=== PATIENT | male | born 1985 | race Caucasian/White ===

== ENCOUNTER 2021-09-20 01:27 | Emergency (ER) | payer SELFPAY ==
--- NOTE | ~2021-09-20 | XR_ITS ---
EXAMINATION: XR HAND, RIGHT CLINICAL INFORMATION: Laceration from glass COMPARISON: None TECHNIQUE: PA, lateral, and oblique views of the right hand. FINDINGS: Osseous alignment is anatomic. No acute fracture is seen. Soft tissue swelling is seen adjacent to the fifth MCP joint. No definite radiopaque foreign body, though assessment is somewhat limited by overlying dressing material. XR/XR hand RT min 3V IMPRESSION: Soft tissue swelling at the fifth MCP joint. No appreciable radiopaque foreign body.
[2021-09-20 01:30] VITALS: BP 126/84; PULSE 121; RESP 18; TEMP 36.4; O2SAT 95; BMI 25.8
--- NOTE | 2021-09-20 01:39 | ED_ITS ---
HPI - Wound/Laceration General Chief Complaint: Wound/Laceration Stated Complaint: Hand inj Time Seen by Provider: 09/20/21 03:29 Source: patient Mode of arrival: ambulatory Limitations: no limitations History of Present Illness HPI narrative: 36-year-old male presents with laceration to his right hand. Patient ac cidentally hit a glass door, the glass shattered and cut the 5th finger. It is unknown when his last Tdap vaccine was updated. He does have full range of motion to the digit but every time he moves the finger blood squirts out of it. He applied a pressure dressing and presented to the emergency department. He does not report any dizziness, palpitations, shortness of breath, loss of sensation, or decreased range of motion. Onset (ago): hour(s) (Within the hour of arrival) Extremity Location: right: hand Place: home Patient tetanus UTD: No Context: accidental Associated symptoms: pain and other (Bleeding) Treatments prior to arrival: bandage Related Data Previous Rx's Medication Instructions Recorded amoxicillin 875 mg-potassium 1 tab PO Q12H 10 days #20 tabs 09/20/21 clavulanate 125 mg tablet Allergies Allergy/AdvReac Type Severity Reaction Status Date / Time No Known Allergies Allergy Verified 09/20/21 01:35 Review of Systems Review of Systems: Constitutional: No Fever, No Chills ENT/Mouth: No Ear Pain, No Hoarseness, No sore throat Eyes: No Eye Pain, No Swelling, No Redness, No Foreign Body Cardiovascular: No Chest Pain, No SOB Respiratory: No Cough, No Dyspnea Gastrointestinal: No Nausea, No Vomiting, No Diarrhea, No abdominal Pain Genitourinary: No Dysuria, No Hematuria Musculoskeletal: positive right 5th finger pain, No Myalgias, No Joint Swelling Skin: Right 5th finger laceration, 3rd finger laceration right Neuro: No Weakness, No Numbness, No Paresthesias, No Loss of Consciousness, No Dizziness, No Headache Psych: No Anxiety/Panic, No Depression Heme/Lymph: no easy bruising, no Lymphadenopathy Endocrine: No Polyuria, No Polydipsia Yes all other systems are reviewed and are negative [facility] Past Medical History Attestation statement: The following information was validated with the patient. Source: old records reviewed Physical Exam Vital Signs: Vital Signs: Last Vital Signs Temp 97.6 F 09/20/21 01:30 Pulse 121 H 09/20/21 01:30 Resp 18 09/20/21 01:30 BP 126/84 09/20/21 01:30 Pulse Ox 95 09/20/21 01:30 O2 Del Method 09/20/21 01:30 BMI result Body Mass Index 25.8 Appearance: Alert. Oriented X3. No acute distress. Eyes: Pupils equal, round and reactive to light. ENT: Pharynx normal. Neck: Normal inspection. Neck supple. CVS: Normal heart rate and rhythm. Pulses normal. Respiratory: No respiratory distress. Breath sounds normal. Abdomen: Soft and nontender. Skin: Multiple lacerations to the right 5th MCP joint, laceration to dorsal asp ect of the 3rd right finger, Skin warm and dry. Normal skin color. Normal skin turgor. Extremities: Full range of motion brisk capillary refill to all digits. Neuro: No motor deficit. No sensory deficit. Course Course Course Narrative: 36-year-old male presents with multiple lacerations to his right hand. Has full range of motion and brisk capillary refill to all digits. No indication of tendon deficit. Plan of care is to repair lacerations. Laceration to the right 5th metacarpal joint complex with vascular involvement. Prepped and draped in sterile fashion. Irrigated with copious amounts of sterile saline and half hydrogen peroxide. Refer to procedure note for full details. 30 minute status post laceration repair, patient continues to have brisk capillary refill, neurovascularly intact with equal pulses, full range of motion without tendon deficit. Patient does understand that he must keep wound clean and dry, and return if he notices any signs or symptoms indicating infection. Patient verbalized understanding of and agrees plan of care discharge home. Verbalized understanding of signs and symptoms indicating need for emergent intervention. MDM - Wound/Laceration Differential Diagnosis Differential diagnosis: Likely laceration Medical Records Attestation: I reviewed the patient's medical records. Imaging Data Hand x-ray: Attestation: I personally reviewed and interpreted this imaging study as follows: Radiologist's impression: EXAMINATION: XR HAND, RIGHT CLINICAL INFORMATION: Laceration from glass? COMPARISON: None? TECHNIQUE: PA, lateral, and oblique views of the right hand. FINDINGS: Osseous alignment is anatomic. No acute fracture is seen. Soft tissue swelling is seen adjacent to the fifth MCP joint. No definite radiopaque foreign body, though assessment is somewhat limited by overlying dressing material.? XR/XR hand RT min 3V IMPRESSION: Soft tissue swelling at the fifth MCP joint. No appreciable radiopaque foreign body. Procedures Laceration Laceration 1: Site: hand Side (If applicable): right (Dorsal aspect of the 3rd digit between DIP and PIP) Size (cm): 1 Description: linear Depth: simple, single layer Local Anesthetic: lidocaine 1% Amount of anesthesia used (mL): 1 Pre-repair: wound explored, irrigated extensively and deep structures intact Skin layer closed with: nylon Size (cm): 5-0 Number of sutures: 4 Technique: simple, interrupted Laceration 2: Site: hand Side (If applicable): right (MCP joint on the 5th finger) Size (cm): 8 Description: flap and irregular Depth: simple, single layer Local Anesthetic: lidocaine 1% Amount of anesthesia used (mL): 7 Pre-repair: wound explored, irrigated extensively and deep structures intact Skin layer closed with: nylon Size (cm): 5-0 Number of sutures: 18 Technique: simple, interrupted Subcutaneous layer closed with: chromic gut Size: 5-0 Number of sutures: 3 Technique: simple, interrupted Discharge Plan Discharge Clinical Impression: Laceration, Finger laceration Patient Disposition: Home, Self-Care Instructions: Care For Your Stitches (ED), Laceration (ED), Finger Laceration (ED) Additional Instructions: You were evaluated for right hand lacerations. We placed 18 sutures to the laceration on your 5th metacarpal joint. We placed 3 internal sutures to stop vascular bleeding. We placed 4 sutures to dorsal aspect of the 3rd finger. Please keep wounds clean and dry. Do not soak your hand, swim, do dishes, or going to a hot tub until wounds are completely healed. You may shower and wash your hands as needed. Take Augmentin twice a day for the next 10 days. If you notice any signs or symptoms indicating infection please return to the emergency department immediately. It is highly recommended that you follow-up with a hand surgeon. I have referred you to Dr. Erika Sherman's. Please call and request an appointment. It is highly recommended that you have a wound check this week. You may present to your primary care physician's office, urgent care, or this facility for evaluation. Thank you for choosing this emergency department for evaluation. Please follow-up with primary care physician as needed. Return to the emergency de partment for any new, concerning, or worsening symptoms. Prescriptions: New amoxicillin-pot clavulanate 875-125 mg tablet 1 tab PO Q12H 10 Days Qty: 20 0RF Referrals: Melva Ricks MD [Physician] - (Complex laceration over the 5th metacarpal joint on the right hand) Stand Alone Forms: Work/School Release
[2021-09-20] MEDS: Amoxicillin/Potassium Clav 875 MG TABLET PO (03:24)
[2021-09-20] MEDS: Lidocaine HCl 1 % MPF 5 ML VIAL 10 ML SUBCUT (03:24)
[2021-09-20] MEDS: Diphth,Pertus(ACell),Tet Adult 0.5 ML SYRINGE IM (03:24)
== END 2021-09-20 05:56 | disposition home or self-care (01) ==
LOC: HO.ED 05:06
PROVIDERS: Emergency Provider Emergency Medicine
DX: S61.216A Laceration without foreign body of right little finger without damage to nail, initial encounter (principal); S61.212A Laceration without foreign body of right middle finger without damage to nail, initial encounter; W25.XXXA Contact with sharp glass, initial encounter; Y93.9 Activity, unspecified; Y92.009 Unspecified place in unspecified non-institutional (private) residence as the place of occurrence of the external cause; Y99.9 Unspecified external cause status
CPT/HCPCS: 12004; 73130; 90471; 90715; 99284